=== PATIENT | male | born 2000 | race African-American/Black ===

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

== ENCOUNTER 2023-05-23 17:07 | Emergency (ER) | payer MEDICAID, OTHER ==
[~2023-05-23] VITALS: Ht 188 cm; Wt 88.6 kg
[2023-05-23 17:18] VITALS: TEMP 98.6
[2023-05-23] MEDS ORDERED: FLUORESCEIN SODIUM 1 MG STRIP OD ONE (18:00)
[2023-05-23] MEDS ORDERED: TETRACAINE HCL/PF 0.5% 4 ML OPHTHALMIC SOLUTION OU ONE (18:00)
[2023-05-23] MEDS ORDERED: PROPARACAINE HCL 0.5% 15 ML OPHTHALMIC SOLUTION OD ONE (18:00)
[2023-05-23] MEDS ORDERED: MOXI3DRO25 OD (18:20)
[2023-05-23 18:32] VITALS: BP 119/74; PULSE 88; RESP 16
== END 2023-05-23 18:30 | disposition home or self-care (01) ==
LOC: EMS 17:07
DX: T15.01XA Foreign body in cornea, right eye, initial encounter (principal); H10.89 Other conjunctivitis; F32.A Depression, unspecified; W44.8XXA Other foreign body entering into or through a natural orifice, initial encounter; Y93.89 Activity, other specified; Y92.89 Other specified places as the place of occurrence of the external cause; Y99.8 Other external cause status
CPT/HCPCS: 99283

== ENCOUNTER 2024-07-02 16:16 | Emergency (ER) | payer MEDICAID ==
[~2024-07-02] VITALS: Ht 185.4 cm; Wt 88.6 kg
[~2024-07-02 16:16] MED LIST changes: -DEPRESSION MEDS; +MOXI3DRO25 OD
[2024-07-02 18:04] LABS: COVID AG,FIA SOURCE NASAL SWAB
[2024-07-02 18:23] LABS: SARS-COV2 (COVID) ANTIGEN,FIA Negative (Negative)
[2024-07-02 18:25] LABS: INFLUENZA TYPE A NEGATIVE FOR TYPE A (NEGATIVE); INFLUENZA TYPE B NEGATIVE FOR TYPE B (NEGATIVE)
[2024-07-02] MEDS ORDERED: FLUT16SP NASAL (19:42)
[2024-07-02] MEDS ORDERED: AMOX-457 PO (19:42)
[2024-07-02] MEDS ORDERED: GUAI1TBM19 PO (19:43)
[2024-07-02 20:03] VITALS: BP 119/74; PULSE 68; RESP 16; TEMP 98.3; O2SAT 99
== END 2024-07-02 20:05 | disposition home or self-care (01) ==
LOC: EMS 16:23
DX: J01.90 Acute sinusitis, unspecified (principal); B96.89 Other specified bacterial agents as the cause of diseases classified elsewhere; F32.A Depression, unspecified; Z20.822 Contact with and (suspected) exposure to COVID-19
CPT/HCPCS: 87804; 99283